=== PATIENT | male | born 1940 ===

== ENCOUNTER 2020-06-05 17:03 | Inpatient (IN) | payer MEDICARE, OTHER ==
[~2020-06-05] VITALS: Ht 186.7 cm; Wt 73.9 kg
[2020-06-05] MEDS ORDERED: LABETALOL 5MG/ML, 20ML IVPush PRN (20:30)
[2020-06-05] MEDS ORDERED: LIDODERM 5% PATCH TD PRN (20:30)
[2020-06-05] MEDS ORDERED: DOCUSATE 100 MG CAPSULE PO PRN (20:30)
[2020-06-05] MEDS ORDERED: ACETAMINOPHEN 325 MG TABLET PO PRN (20:30)
[2020-06-05] MEDS ORDERED: MELATONIN 5 MG TABLET PO PRN (20:30)
[2020-06-05 20:36] VITALS: BP 151/84
[2020-06-05] MEDS ORDERED: PLEASE ENTER HEIGHT AND WEIGHT MC SCH (21:00)
[2020-06-05] MEDS: ENOXAPARIN 40 MG/0.4 ML SQ SCH (23:04)
[2020-06-06 03:00] VITALS: BP 148/78
[2020-06-06 05:45] LABS: BASOPHILS % (AUTO) 1 % (0-1); EOSINOPHILS % (AUTO) 4 % (1-7); LYMPHOCYTES % (AUTO) 26 % (22-44); MEAN CORPUSCULAR HEMOGLOBIN 32.8 pg (27.5-34.5); MEAN CORPUSCULAR HGB CONC 34.9 g/dL (33.2-36.2); MEAN PLATELET VOLUME 7.2 fL (7.4-10.4); MONOCYTES % (AUTO) 12 % (2-9); NEUTROPHILS % (AUTO) 58 % (42-75); PLATELET COUNT 167 x10^3/uL (130-400); RED BLOOD COUNT 3.71 x10^6/uL (4.38-5.82); RED CELL DISTRIBUTION WIDTH 12.6 % (9.4-14.8)
[2020-06-06 05:49] LABS: MD NO
[2020-06-06 05:57] LABS: INTERNATIONAL NORMALIZED RATIO 1.22 (0.93-1.1)
[2020-06-06 05:58] LABS: ALANINE AMINOTRANSFERASE 20 U/L (12-78); ALBUMIN 2.6 g/dL (3.4-5.0); ANION GAP 6 mmol/L (5-15); CALCIUM 8.7 mg/dL (8.5-10.1); CHLORIDE 110 mmol/L (98-107); CREATININE 0.57 mg/dL (0.7-1.3)
[2020-06-06 06:00] LABS: ALKALINE PHOSPHATASE 154 U/L (45-117); BILIRUBIN,TOTAL 0.7 mg/dL (0.2-1.0); TOTAL PROTEIN 6.8 g/dL (6.4-8.2)
[2020-06-06 08:38] VITALS: BP 134/71
[2020-06-06] MEDS ORDERED: CYAN500L2 PO (09:32)
[2020-06-06] MEDS ORDERED: DOCU100C33 PO (09:32)
[2020-06-06] MEDS ORDERED: TAMS-11 PO (09:32)
[2020-06-06] MEDS ORDERED: ASCO100018 PO (09:32)
[2020-06-06] MEDS ORDERED: MAGN400T36 PO (09:32)
[2020-06-06 12:48] VITALS: BP 129/74
[2020-06-06 19:32] VITALS: BP 154/80
[2020-06-06] MEDS: ENOXAPARIN 40 MG/0.4 ML SQ SCH (22:34)
[2020-06-07 01:52] VITALS: BP 142/77
[2020-06-07 07:18] VITALS: BP 145/79
[2020-06-07] MEDS: TAMSULOSIN 0.4 MG CAP.ER.24H PO SCH (08:34)
[2020-06-07] MEDS: MAGNESIUM OXIDE 400 MG TABLET PO SCH (08:35)
[2020-06-07] MEDS: CYANOCOBALAMIN 1,000 MCG TABLET PO SCH (08:35)
[2020-06-07] MEDS: ASCORBIC ACID 500 MG TABLET PO SCH (08:36)
[2020-06-07 08:37] LABS: BASOPHILS % (AUTO) 1 % (0-1); EOSINOPHILS % (AUTO) 3 % (1-7); LYMPHOCYTES % (AUTO) 27 % (22-44); MEAN CORPUSCULAR HEMOGLOBIN 32.8 pg (27.5-34.5); MEAN CORPUSCULAR HGB CONC 34.7 g/dL (33.2-36.2); MEAN PLATELET VOLUME 7.1 fL (7.4-10.4); MONOCYTES % (AUTO) 12 % (2-9); NEUTROPHILS % (AUTO) 57 % (42-75); PLATELET COUNT 180 x10^3/uL (130-400); RED CELL DISTRIBUTION WIDTH 12.6 % (9.4-14.8)
[2020-06-07 08:44] LABS: ALBUMIN 2.8 g/dL (3.4-5.0); ANION GAP 6 mmol/L (5-15); CHLORIDE 110 mmol/L (98-107)
[2020-06-07 08:45] LABS: MD NO
[2020-06-07 08:47] LABS: ALANINE AMINOTRANSFERASE 22 U/L (12-78); ALKALINE PHOSPHATASE 161 U/L (45-117); BILIRUBIN,TOTAL 0.9 mg/dL (0.2-1.0); CREATININE 0.61 mg/dL (0.7-1.3); TOTAL PROTEIN 7.3 g/dL (6.4-8.2)
[2020-06-07 14:00] VITALS: BP 138/76
[2020-06-07 20:25] VITALS: BP 120/64
[2020-06-08 02:23] VITALS: BP 125/74
[2020-06-08 05:41] LABS: BASOPHILS % (AUTO) 1 % (0-1); EOSINOPHILS % (AUTO) 3 % (1-7); LYMPHOCYTES % (AUTO) 24 % (22-44); MEAN CORPUSCULAR HEMOGLOBIN 32.6 pg (27.5-34.5); MEAN CORPUSCULAR HGB CONC 34.6 g/dL (33.2-36.2); MEAN PLATELET VOLUME 7.1 fL (7.4-10.4); MONOCYTES % (AUTO) 15 % (2-9); NEUTROPHILS % (AUTO) 57 % (42-75); PLATELET COUNT 173 x10^3/uL (130-400); RED BLOOD COUNT 3.65 x10^6/uL (4.38-5.82); RED CELL DISTRIBUTION WIDTH 12.7 % (9.4-14.8)
[2020-06-08 05:50] LABS: MD NO
[2020-06-08 05:54] LABS: ALBUMIN 2.7 g/dL (3.4-5.0); ANION GAP 5 mmol/L (5-15); CALCIUM 9.3 mg/dL (8.5-10.1); CHLORIDE 111 mmol/L (98-107)
[2020-06-08 05:58] LABS: ALANINE AMINOTRANSFERASE 20 U/L (12-78); ALKALINE PHOSPHATASE 146 U/L (45-117); BILIRUBIN,TOTAL 0.6 mg/dL (0.2-1.0); CREATININE 0.66 mg/dL (0.7-1.3); TOTAL PROTEIN 6.8 g/dL (6.4-8.2)
[2020-06-08] MEDS: TAMSULOSIN 0.4 MG CAP.ER.24H PO SCH (07:50)
[2020-06-08] MEDS: CYANOCOBALAMIN 1,000 MCG TABLET PO SCH (07:50)
[2020-06-08] MEDS: ASCORBIC ACID 500 MG TABLET PO SCH (07:50)
[2020-06-08] MEDS: MAGNESIUM OXIDE 400 MG TABLET PO SCH (07:50)
[2020-06-08 08:03] VITALS: BP 122/71
[2020-06-08] MEDS: D5%-0.45% NACL 1,000 ML IV SCH ×2 (08:06→23:05)
[2020-06-08] MEDS ORDERED: CHLORHEXIDINE 15 ML UDC ONE (13:22)
[2020-06-08] MEDS ORDERED: CHLORHEXIDINE 15 ML UDC MM ONE (13:30)
[2020-06-08] MEDS ORDERED: LABETALOL 5MG/ML, 20ML IV PRN (15:00)
[2020-06-08] MEDS ORDERED: hydrALAzine 20 MG/ML, 1ML IV PRN (15:00)
[2020-06-08] MEDS ORDERED: ACETAMINOPHEN 325 MG TABLET PO PRN (15:00)
[2020-06-08] MEDS ORDERED: HYDROmorphone 1 MG/ML, 1ML INJ IVPush PRN (15:00)
[2020-06-08] MEDS ORDERED: OXYcodone 5 MG/5 ML ORAL.SOL UDC PO PRN (15:00)
[2020-06-08] MEDS: CEFAZOLIN PMX 2GM/50ML 50 ML IVPB SCH ×2 (15:00→23:05)
[2020-06-08] MEDS ORDERED: morphine SULFATE 10 MG/ML, 1ML IVPush PRN (15:00)
[2020-06-08] MEDS ORDERED: ONDANSETRON 2MG/ML, 2ML IVPush PRN (15:00)
[2020-06-08] MEDS ORDERED: MEPERIDINE/PF 25MG/0.5ML IVPush PRN (15:00)
[2020-06-08] MEDS ORDERED: TRANEXAMIC ACID 1,000 MG in SODIUM CHLORIDE 0.9% 100 ML IVPB ONE (15:00)
[2020-06-08] MEDS ORDERED: CEFAZOLIN 1,000 MG ONE (15:07)
[2020-06-08] MEDS ORDERED: GLYCOPYRROLATE 0.2MG/1ML, 5ML ONE (15:07)
[2020-06-08] MEDS ORDERED: PHENYLEPHRINE 10 MG/ML ONE (15:07)
[2020-06-08] MEDS ORDERED: NEOSTIGMINE 1 MG/ML, 10ML ONE (15:07)
[2020-06-08] MEDS ORDERED: ROCURONIUM 10MG/ML,5ML ONE (15:07)
[2020-06-08] MEDS ORDERED: PROPOFOL 10 MG/ML, 20ML ONE (15:07)
[2020-06-08] MEDS: FENTANYL PF 100 MCG/2ML IV PRN ×2 (17:20→17:25)
[2020-06-08 19:12] VITALS: BP 132/74
[2020-06-09 00:03] VITALS: BP 119/71
[2020-06-09] MEDS ORDERED: CEFAZOLIN PMX 2GM/50ML 50 ML IVPB ONE (01:00)
[2020-06-09 03:18] VITALS: BP 125/71
[2020-06-09] MEDS ORDERED: MORPHINE SULFATE 4 MG/ML, 1ML IV ONE (03:30)
[2020-06-09] MEDS: ASPIRIN 81 MG TABLET EC PO SCH ×3 (06:21→20:33)
[2020-06-09] MEDS ORDERED: OXYcodone IR 5MG TABLET PO PRN (07:30)
[2020-06-09] MEDS ORDERED: HYDROmorphone 2 MG/ML, 1ML IVPush PRN (07:30)
[2020-06-09 08:04] VITALS: BP 136/72
[2020-06-09] MEDS: ASCORBIC ACID 500 MG TABLET PO SCH (09:50)
[2020-06-09] MEDS: MAGNESIUM OXIDE 400 MG TABLET PO SCH (09:50)
[2020-06-09] MEDS: MAGNESIUM HYDROXIDE 8%, 30ML UDC PO SCH (09:51)
[2020-06-09] MEDS: KETOROLAC 30 MG/1 ML IVPush SCH ×3 (09:51→20:33)
[2020-06-09] MEDS: TAMSULOSIN 0.4 MG CAP.ER.24H PO SCH (09:51)
[2020-06-09] MEDS: CYANOCOBALAMIN 1,000 MCG TABLET PO SCH (09:51)
[2020-06-09] MEDS: POLYETHYLENE GLYCOL 17 GM PACKET NG SCH (09:52)
[2020-06-09] MEDS: D5%-0.45% NACL 1,000 ML IV SCH (11:56)
[2020-06-09 13:23] VITALS: BP 138/70
[2020-06-09 19:26] VITALS: BP 119/66
[2020-06-10] MEDS: KETOROLAC 30 MG/1 ML IVPush SCH (02:33)
[2020-06-10 03:03] VITALS: BP 154/77
[2020-06-10 07:00] VITALS: BP 134/69
[2020-06-10 07:36] LABS: BASOPHILS % (AUTO) 0 % (0-1); EOSINOPHILS % (AUTO) 1 % (1-7); LYMPHOCYTES % (AUTO) 11 % (22-44); MEAN CORPUSCULAR HEMOGLOBIN 33.1 pg (27.5-34.5); MEAN CORPUSCULAR HGB CONC 34.8 g/dL (33.2-36.2); MEAN PLATELET VOLUME 7.1 fL (7.4-10.4); MONOCYTES % (AUTO) 11 % (2-9); NEUTROPHILS % (AUTO) 78 % (42-75); PLATELET COUNT 137 x10^3/uL (130-400); RED BLOOD COUNT 3.31 x10^6/uL (4.38-5.82); RED CELL DISTRIBUTION WIDTH 12.5 % (9.4-14.8)
[2020-06-10 07:39] LABS: MD NO
[2020-06-10 07:47] LABS: ANION GAP 7 mmol/L (5-15); CALCIUM 8.3 mg/dL (8.5-10.1); CHLORIDE 104 mmol/L (98-107); CREATININE 0.67 mg/dL (0.7-1.3)
[2020-06-10] MEDS: ASCORBIC ACID 500 MG TABLET PO SCH (07:58)
[2020-06-10] MEDS: ASPIRIN 81 MG TABLET EC PO SCH (07:58)
[2020-06-10] MEDS: TAMSULOSIN 0.4 MG CAP.ER.24H PO SCH (07:58)
[2020-06-10] MEDS: MAGNESIUM HYDROXIDE 8%, 30ML UDC PO SCH (07:59)
[2020-06-10] MEDS: POLYETHYLENE GLYCOL 17 GM PACKET NG SCH (07:59)
[2020-06-10] MEDS: CYANOCOBALAMIN 1,000 MCG TABLET PO SCH (07:59)
[2020-06-10] MEDS: MAGNESIUM OXIDE 400 MG TABLET PO SCH (07:59)
[2020-06-10] MEDS ORDERED: D5%-0.45% NACL 1,000 ML IV SCH (08:00)
[2020-06-10] MEDS ORDERED: DOCU100C33 PO (08:18)
[2020-06-10] MEDS ORDERED: OXYC5CAP2 PO (08:18)
[2020-06-10] MEDS ORDERED: TRAM50TA2 PO (08:19)
[2020-06-10] MEDS ORDERED: ASPI81TA45 PO (08:19)
[2020-06-10] MEDS ORDERED: MELO7.5T5 PO (08:20)
== END 2020-06-10 09:10 | DRG 522 ==
LOC: 4NE 17:03
PROVIDERS: ADMIT Internal Medicine; ATTEND Hospitalist
PROC: 0QS404Z Reposition Right Acetabulum with Internal Fixation Device, Open Approach (ICD-10-PCS; 2020-06-08)
PROC: 0SRR03A Replacement of Right Hip Joint, Femoral Surface with Ceramic Synthetic Substitute, Uncemented, Open Approach (ICD-10-PCS; principal; 2020-06-08 15:00)
DX: S32.471A Displaced fracture of medial wall of right acetabulum, initial encounter for closed fracture (principal); M87.9 Osteonecrosis, unspecified; M24.7 Protrusio acetabuli; Z20.822 Contact with and (suspected) exposure to COVID-19; L89.152 Pressure ulcer of sacral region, stage 2; W18.39XA Other fall on same level, initial encounter; I10 Essential (primary) hypertension; D64.9 Anemia, unspecified; N40.1 Benign prostatic hyperplasia with lower urinary tract symptoms; R33.8 Other retention of urine; Y93.89 Activity, other specified; Y92.89 Other specified places as the place of occurrence of the external cause; Y99.8 Other external cause status; Z85.07 Personal history of malignant neoplasm of pancreas; Z87.891 Personal history of nicotine dependence; Z79.899 Other long term (current) drug therapy
CPT/HCPCS: 36415; 72170; 72192; 80048; 80053; 85025; 85610; 86850; 86900; 87635; 93005; C1713; G0378; J0171; J0690; J1650; J1885; J2405; J2704; J2710; J2795; J3010; J3370; C1762; C1776; J2270; J2370